=== PATIENT | female | born 1970 | race Caucasian/White ===

== ENCOUNTER 2017-02-17 23:36 | Emergency (ER) | payer OTHER ==
--- NOTE | 2017-02-17 23:55 | ED Physician Chart ---
Chief Complaint/HPI - Patient Information Date Seen:: 02/17/17 Time Seen:: 23:40 Chief Complaint:: nausea and vomiting History of Present Illness:: 46-year-old female history of diabetes mellitus type 2, complains of acute, constant, intermittent, moderate to severe, nausea with associated vomiting 4 days. Has associated epigastric pain. Denies fevers, chest pain, palpitations , dysuria, gross hematuria, gross blood in stool, headache, dizziness, lightheadedness, numbness, tingling. Allergies:: Allergies Allergy/AdvReac Type Severity Reaction Status Date / Time No Known Allergies Allergy Verified 02/17/17 23:52 Historian:: Patient Review:: Nurse's Note Reviewed Review of Systems - Review of Systems Other: Complete system review otherwise unremarkable except as noted in history of present illness. Past Medical History - Past Medical History Past Medical History: DM Family History: None Social History: Non Smoker, No Alcohol, No Drug Use, Surgical History: None Psychiatricy History: None Medication: Reviewed Family Medical History - Family Member Mother History Unknown: Yes Ethnicity: Physical Exam - Physical Examination Other:: INITIAL VITAL SIGNS: Reviewed by me GENERAL: Alert and interactive. No acute distress HEAD: Head is normocephalic and atraumatic EYES: EOMI. PERRL. No scleral icterus. No conjunctival injection ENT: Moist mucous membranes. NECK: Supple. No masses. Full range of motion RESPIRATORY: No tachypnea. Clear breath sounds bilaterally. No wheezing, rales, or rhonchi CV: Regular rate and rhythm. No murmurs, rubs, or gallops ABDOMEN: Soft, non-distended, slight tenderness to palpation along the epigastric area. No guarding. No rebound. No masses. EXTREMITIES: No deformity. No cyanosis. No edema. SKIN: Warm and dry. No obvious rashes. NEUROLOGIC: Alert and oriented. Face is symmetric. Speech is normal. Moves all extremities equally. Motor and sensory distally intact. Labs/Radiology/EKG Results - Lab Results Results: Lab Results 02/18/17 02/18/17 02/18/17 Range/Units 00:08 00:08 00:08 WBC 9.4 (4.8-10.8) Th/cmm RBC 5.42 H (3.80-5.10) Mil/cmm Hgb 14.6 (11.7-15.5) gm/dL Hct 43.8 (35.0-45.0) % MCV 80.8 L (81-100) fl MCH 27.0 (27.0-31.0) pg MCHC Differential 33.3 (28.0-36.0) pg RDW 13.0 (11.5-20.0) % Plt Count 233 (150-400) Th/cmm MPV 9.9 fl Neutrophils % 80.2 H (40.0-80.0) % Lymphocytes % 12.5 L (20.0-50.0) % Monocytes % 4.9 (2.0-10.0) % Eosinophils % 2.2 (0.0-5.0) % Basophils % 0.2 (0.0-2.0) % Sodium 129 L (136-145) mEq/L Potassium 3.9 (3.5-5.1) mEq/L Chloride 97 L (98-107) mEq/L Carbon Dioxide 24.8 (21.0-31.0) mEq/L Anion Gap 11.1 (7.0-16.0) BUN 16 (7-25) mg/dL Creatinine 0.6 (0.6-1.2) mg/dL Est GFR ( Amer) > 60.0 (>90) ml/min Est GFR (Non-Af Amer) > 60.0 ml/min BUN/Creatinine Ratio 26.7 Glucose 346 H (70-105) mg/dL Calcium 10.2 (8.6-10.3) mg/dL Total Bilirubin 0.5 (0.3-1.0) mg/dL AST 15 (13-39) U/L ALT 15 (7-52) U/L Alkaline Phosphatase 119 H (34-104) U/L Troponin I 0.02 (0.01-0.05) ng/mL Total Protein 8.0 (6.0-8.3) gm/dL Albumin 4.1 (3.7-5.3) gm/dL Globulin 3.9 gm/dL Albumin/Globulin Ratio 1.1 (1.0-1.8) Amylase 11 L (29-103) U/L Lipase 14 (11-82) U/L Urine Source Urine Color Urine Clarity (CLEAR) Urine pH Ur Specific [place] (1.005-1.030) Urine Protein (NEGATIVE) mg/dL Urine Glucose (UA) (NEGATIVE) mg/dL Urine Ketones (NEGATIVE) mg/dL Urine Blood (NEGATIVE) Urine Nitrate (NEGATIVE) Urine Bilirubin (NEGATIVE) Urine Urobilinogen (0.2 - 1.0) E.U./dL Ur Leukocyte Esterase (NEGATIVE) Urine RBC (0-5) /hpf Urine WBC (0-5) /hpf Ur Epithelial Cells (FEW) /lpf Urine Bacteria (NONE SEEN) /hpf Urine Test Urine Opiates Screen (NEGATIVE) Urine Methadone Screen (NEGATIVE) Ur Barbiturates Screen (NEGATIVE) Ur Tricyclics Screen (NEGATIVE) Ur Phencyclidine Scrn (NEGATIVE) Amphetamines Screen (NEGATIVE) U Methamphetamines Scrn (NEGATIVE) U Benzodiazepines Scrn (NEGATIVE) U Cocaine Metab Screen (NEGATIVE) U Cannabinoids Screen (NEGATIVE) 02/18/17 02/18/17 02/18/17 Range/Units 00:12 00:12 00:12 WBC (4.8-10.8) Th/cmm RBC (3.80-5.10) Mil/cmm Hgb (11.7-15.5) gm/dL Hct (35.0-45.0) % MCV (81-100) fl MCH (27.0-31.0) pg MCHC Differential (28.0-36.0) pg RDW (11.5-20.0) % Plt Count (150-400) Th/cmm MPV fl Neutrophils % (40.0-80.0) % Lymphocytes % (20.0-50.0) % Monocytes % (2.0-10.0) % Eosinophils % (0.0-5.0) % Basophils % (0.0-2.0) % Sodium (136-145) mEq/L Potassium (3.5-5.1) mEq/L Chloride (98-107) mEq/L Carbon Dioxide (21.0-31.0) mEq/L Anion Gap (7.0-16.0) BUN (7-25) mg/dL Creatinine (0.6-1.2) mg/dL Est GFR ( Amer) (>90) ml/min Est GFR (Non-Af Amer) ml/min BUN/Creatinine Ratio Glucose (70-105) mg/dL Calcium (8.6-10.3) mg/dL Total Bilirubin (0.3-1.0) mg/dL AST (13-39) U/L ALT (7-52) U/L Alkaline Phosphatase (34-104) U/L Troponin I (0.01-0.05) ng/mL Total Protein (6.0-8.3) gm/dL Albumin (3.7-5.3) gm/dL Globulin gm/dL Albumin/Globulin Ratio (1.0-1.8) Amylase (29-103) U/L Lipase (11-82) U/L Urine Source CLEAN C Urine Color YELLOW Urine Clarity CLEAR (CLEAR) Urine pH 6.5 Ur Specific [place] 1.020 (1.005-1.030) Urine Protein 100 H (NEGATIVE) mg/dL Urine Glucose (UA) 500 H (NEGATIVE) mg/dL Urine Ketones >=80 H (NEGATIVE) mg/dL Urine Blood TRACE (NEGATIVE) Urine Nitrate NEGATIVE (NEGATIVE) Urine Bilirubin NEGATIVE (NEGATIVE) Urine Urobilinogen 0.2 (0.2 - 1.0) E.U./dL Ur Leukocyte Esterase NEGATIVE (NEGATIVE) Urine RBC 0-2 (0-5) /hpf Urine WBC 0-2 (0-5) /hpf Ur Epithelial Cells FEW (FEW) /lpf Urine Bacteria FEW (NONE SEEN) /hpf Urine Test NEGATIVE Urine Opiates Screen NEGATIVE (NEGATIVE) Urine Methadone Screen NEGATIVE (NEGATIVE) Ur Barbiturates Screen NEGATIVE (NEGATIVE) Ur Tricyclics Screen NEGATIVE (NEGATIVE) Ur Phencyclidine Scrn NEGATIVE (NEGATIVE) Amphetamines Screen NEGATIVE (NEGATIVE) U Methamphetamines Scrn NEGATIVE (NEGATIVE) U Benzodiazepines Scrn NEGATIVE (NEGATIVE) U Cocaine Metab Screen NEGATIVE (NEGATIVE) U Cannabinoids Screen NEGATIVE (NEGATIVE) - Radiology Results Results: CT abdomen and pelvis without contrast per radiology NAD ED Septic Shock - . Is Septic Shock (SBP<90, OR Lactate>4 mmol\L) present?: No Reassessment (Disposition) - Reassessment Reassessment:: Patient presents with acute nausea vomiting and epigastric pain. Blood sugar is elevated. Other labs essentially unremarkable. Discussed all findings with patient. Given IV fluids. Also gave IV analgesics and IV antiemetics. Symptoms totally resolved. CT was unremarkable for any acute findings. We'll give a prescription for Zofran. Recommend follow-up with primary care 1-2 days. Return to ER precautions given. Patient says she understands and agrees with the plan. Reassessment Condition:: Improved - Diagnosis Diagnosis:: Acute nausea vomiting and abdominal pain Hyperglycemia Diabetes mellitus type 2 - Aftercare/Follow up Instructions Aftercare/Follow-Up Instructions:: Counseled pt regarding lab results/diagnosis & need follow up, Refer to Discharge Instructions Medication Prescribed:: Zofran 8 mg ODT - Patient Disposition Discharge/Transfer:: Home Time:: 01:33 Condition at Disposition:: Improved ED Discharge Plan - Patient Disposition Admit/Discharge/Transfer: PT DISCHARGED HOME Condition at Disposition: Improved Instructions: Nausea and Vomiting, [id number]
[2017-02-17] MEDS ORDERED: Prochlorperazine 5 mg/mL 2mL Vial IVP STA (23:56)
[2017-02-18 00:25] LABS: % BASOPHILS 0.2 % (0.0-2.0); % EOSINOPHILS 2.2 % (0.0-5.0); % LYMPHOCYTES 12.5 % (20.0-50.0); % MONOCYTES 4.9 % (2.0-10.0); % NEUTROPHILS 80.2 % (40.0-80.0); HEMATOCRIT 43.8 % (35.0-45.0); HEMOGLOBIN 14.6 gm/dL (11.7-15.5); MEAN CELL VOLUME 80.8 fl (81-100); MEAN CORPUSCULAR HGB CONC 33.3 pg (28.0-36.0); MEAN PLATELET VOLUME 9.9 fl; NEUTROPHILE ABSOLUTE 7.5 Th/cmm (1.8-8.0); PLATELET COUNT 233 Th/cmm (150-400); RED BLOOD COUNT 5.42 Mil/cmm (3.80-5.10); WHITE BLOOD COUNT 9.4 Th/cmm (4.8-10.8)
[2017-02-18] MEDS ORDERED: Prochlorperazine 5 mg/mL 2mL Vial ONE (00:25)
[2017-02-18 00:39] LABS: AMPHETAMINE URINE NEGATIVE (NEGATIVE); BARBITURATES URINE NEGATIVE (NEGATIVE); METHADONE URINE NEGATIVE (NEGATIVE); URINE BILIRUBIN NEGATIVE (NEGATIVE); URINE COLOR YELLOW; URINE GLUCOSE (UA) 500 mg/dL (NEGATIVE); URINE KETONE >=80 mg/dL (NEGATIVE)
[2017-02-18 00:39] LABS: ALB/GLOB RATIO 1.1 (1.0-1.8); ALKALINE PHOSPHATASE 119 U/L (34-104); AMYLASE SERUM 11 U/L (29-103); ANION GAP 11.1 (7.0-16.0); BILIRUBIN,TOTAL 0.5 mg/dL (0.3-1.0); BUN - UREA NITROGEN 16 mg/dL (7-25); BUN/CREATININE RATIO 26.7; CALCIUM SERUM 10.2 mg/dL (8.6-10.3); CARBON DIOXIDE 24.8 mEq/L (21.0-31.0); CHLORIDE 97 mEq/L (98-107); CREATININE - SERUM 0.6 mg/dL (0.6-1.2); GLUCOSE 346 mg/dL (70-105); LIPASE 14 U/L (11-82); POTASSIUM SERUM 3.9 mEq/L (3.5-5.1); SGOT 15 U/L (13-39); SGPT/ALT 15 U/L (7-52); SODIUM SERUM 129 mEq/L (136-145)
[2017-02-18 00:40] LABS: URINE BACTERIA FEW /hpf (NONE SEEN); URINE BLOOD TRACE (NEGATIVE); URINE EPITHELIAL CELLS FEW /lpf (FEW); URINE PH 6.5; URINE PROTEIN 100 mg/dL (NEGATIVE); URINE RBC 0-2 /hpf (0-5); URINE UROBILINOGEN 0.2 E.U./dL (0.2 - 1.0); URINE WBC 0-2 /hpf (0-5)
[2017-02-18] MEDS ORDERED: Sodium Chloride 0.9% 1,000 ML IV ONE (00:53)
--- NOTE | 2017-02-18 10:37 | Diagnostic Imaging Report ---
CT abdomen and pelvis without intravenous contrast Indication: Nausea, vomiting, abdominal pain Comparison: None, Technique: Axial images were obtained from the lung bases to the bilateral proximal femurs without IV contrast. Coronal reconstructions were made. total DLP: [id number], CTDI15.5 FINDINGS: Hypoventilatory and atelectatic changes of the lung bases are noted. Assessment of the solid organs is limited due to lack of IV contrast. No evidence of focal hepatic, splenic lesions. There is severe atrophy of the pancreas with diffuse fatty replacement. No focal adrenal lesions. No evidence of hydronephrosis or nephrolithiasis. Minimal diverticulosis is noted. No diverticulitis. Appendix is not visualized. No evidence of free air or free fluid. Small hiatal hernia is noted. Mild edema is seen along the paraspinal soft tissues. Degenerative changes of the spine and pelvis are noted. IMPRESSION: No evidence of bowel obstruction. Minimal diverticulosis without evidence of diverticulitis Appendix is not visualized No evidence of free fluid Small hiatal hernia. Diffuse atrophy of the pancreas.
== END 2017-02-18 02:50 | disposition home or self-care (01) ==
LOC: ER 23:36
DX: R11.2 Nausea with vomiting, unspecified (principal); R10.13 Epigastric pain; E11.65 Type 2 diabetes mellitus with hyperglycemia
CPT/HCPCS: 99285; 96361; 96374; 96375; 84484; 36415; 80307; 85025; 81001; 82150; 83036; 81025; 83690; 80053; 74176; J1885; J2060; J2405; J0780; J7030